=== PATIENT | female | born 1945 | race Caucasian/White ===

== ENCOUNTER → 2016-03-18 | Outpatient (CLI) | payer MEDICARE, OTHER | LOC: GMAL 10:18 | PROVIDERS: ATTEND Family Medicine | DX: D50.8 Other iron deficiency anemias (principal) ==

== ENCOUNTER → 2016-03-24 | Outpatient (CLI) | payer MEDICARE, OTHER | LOC: GMAL 17:45 | PROVIDERS: ATTEND Family Medicine | DX: D51.3 Other dietary vitamin B12 deficiency anemia (principal); R53.82 Chronic fatigue, unspecified ==

== ENCOUNTER → 2016-03-29 | Outpatient (CLI) | payer MEDICARE, OTHER | END | disposition home or self-care (01) | LOC: GMAL 17:59 | PROVIDERS: ATTEND Family Medicine | DX: N39.0 Urinary tract infection, site not specified (principal) ==

== ENCOUNTER → 2016-07-05 | Outpatient (CLI) | payer MEDICARE, OTHER | END | disposition home or self-care (01) | LOC: LAB.O 08:41 | PROVIDERS: ATTEND Internal Medicine Cardiovascular Disease | DX: E78.2 Mixed hyperlipidemia (principal); E11.9 Type 2 diabetes mellitus without complications; I10 Essential (primary) hypertension ==

== ENCOUNTER → 2016-09-02 | Outpatient (CLI) | payer MEDICARE, OTHER ==
--- NOTE | 2016-09-02 14:43 | RAD ---
EXAM DESCRIPTION: Hip,Left 2 Views CLINICAL HISTORY: HIP PAIN COMPARISON: None Available. TECHNIQUE: AP/frog leg lateral FINDINGS: There is no bone, joint, or soft tissue abnormality. No fracture or dislocation is seen. Previous internal fixation of the lower lumbar spine is noted. The joint spaces well-maintained. IMPRESSION: Normal study Electronically signed by: Jaswant Quijano MD 09/02/2016 2:42 PM CDT
--- NOTE | 2016-09-02 14:45 | RAD ---
EXAM DESCRIPTION: Pelvis CLINICAL HISTORY: HIP PAIN COMPARISON: None. TECHNIQUE: AP pelvis FINDINGS: Pedicle screw fusion is observed at the L4-5 level. There is evidence of an L4-L5 level laminectomy. The pelvis is intact. No fracturing is detected. The proximal femurs are unremarkable. IMPRESSION: Unremarkable pelvis and proximal femurs Electronically signed by: Lalo He MD 09/02/2016 2:43 PM CDT
== END | disposition home or self-care (01) ==
LOC: RAD 08:50
PROVIDERS: ATTEND Orthopaedic Surgery
DX: M25.552 Pain in left hip (principal); M25.551 Pain in right hip

== ENCOUNTER → 2016-09-29 | Outpatient (CLI) | payer MEDICARE, OTHER | END | disposition home or self-care (01) | LOC: GMAL 16:37 | PROVIDERS: ATTEND Family Medicine | DX: N39.0 Urinary tract infection, site not specified (principal) ==

== ENCOUNTER → 2016-10-12 | Outpatient (CLI) | payer MEDICARE, OTHER | END | disposition home or self-care (01) | LOC: GMAL 10:26 | PROVIDERS: ATTEND Family Medicine | DX: D50.8 Other iron deficiency anemias (principal); E55.9 Vitamin D deficiency, unspecified ==

== ENCOUNTER → 2016-11-08 | Outpatient (CLI) | payer MEDICARE, OTHER | END | disposition home or self-care (01) | LOC: GMAL 14:30 | PROVIDERS: ATTEND Family Medicine | DX: M25.50 Pain in unspecified joint (principal) ==

== ENCOUNTER → 2016-11-17 | Outpatient (CLI) | payer MEDICARE, OTHER | LOC: GMAL 14:48 | PROVIDERS: ATTEND Family Medicine | DX: R07.2 Precordial pain (principal) ==

== ENCOUNTER → 2016-12-06 | Outpatient (CLI) | payer MEDICARE, OTHER | END | disposition home or self-care (01) | LOC: GMAL 17:08 | PROVIDERS: ATTEND Family Medicine | DX: I50.9 Heart failure, unspecified (principal) ==

== ENCOUNTER → 2016-12-08 | Outpatient (CLI) | payer MEDICARE, OTHER ==
--- NOTE | 2016-12-09 15:19 | US ---
EXAM DESCRIPTION: Thyroid: Ultrasound. CLINICAL HISTORY: NONTOXIC SINGLE THYROID NODULE TECHNIQUE: Transcutaneous scannin-dimensional and Doppler modes. FINDINGS: Right lobe dimensions 5.3 x 2.4 x 2.3 cm. Heterogeneous echoes. Hypoechoic nodule in the upper lobe measuring 1 cm transverse and 1.7 x 0.8 cm longitudinal, nonvascular. Vascularity No microcalcifications. Contour right lobe smooth. Juxta-thyroid masses/fluid: none. Left lobe dimensions 3.6 x 1.7 x 1.2 cm. Heterogeneous echoes. Complex nodule in the lower lobe measuring 1.2 cm transverse and 1.7 x 1.0 cm in the sagittal plane, nonvascular. Second nodule hypoechoic and solid measuring 0.9 cm transverse and 12 x 8 mm in the sagittal plane. Projects posteriorly from the capsule. Nonvascular.. Normal vascularity in the remainder of the lobe. No microcalcifications. Contour left lobe smooth. Juxta-thyroid masses/fluid: none. Isthmus thickness 8.0 mm. Inhomogeneous echoes. Hypoechoic nodule in the midline and right of midline measuring 9.6 mm transverse and 13 x 8 mm in the sagittal plane. Nonvascular normal vascularity in the remainder of the lobe Contour elevated by the nodule. IMPRESSION: 1. Multiple nodules in the thyroid lobes bilaterally, some are solid and some are complex. These nodules do not meet imaging criteria for fine needle aspiration sampling according to RP best practice guidelines, adopted from ACR white paper and Menezes 3-tiered guidelines on incidental thyroid nodules. Please see below.* These recommendations do not apply to patients with increased risk for thyroid cancer or patients with symptomatic thyroid disease. Consider six month follow-up ultrasound imaging. 2. No discrete solid masses, cystic masses, or edema in the surrounding soft tissues. *Further evaluation by thyroid US recommended for: -Solitary incidental thyroid nodule (ITN) with high risk imaging features (locally invasive nodule or suspicious lymph nodes) -Solitary ITN of any size in pediatric patients <= 18 years of age -Solitary ITN >= 1 cm in axial plane in patients between 18 and 35 years of age -Solitary ITN >= 1.5 cm in axial plane in patients >= 35 years of age -Heterogeneous enlarged thyroid gland -ITN avid on FDG-PET or other nuclear medicine (MIBI and octreotide) scans. FNA biopsy is also recommended for PET avid nodules. 2.No f/u imaging is recommended for ITN's not meeting the above criteria. 3.For multiple thyroid nodules, the above recommendations for solitary ITN are to be applied to the largest nodule. 4.No US or f/u recommended for ITN's without high risk features in patients with limited life expectancy or significant co-morbidities, unless clinically warranted. 5.These recommendations do not apply to patients w/ increased risk for thyroid cancer or patients with symptomatic thyroid disease. Recommendations for f/u of Incidental Thyroid Nodules (ITN) found on CT, MR, NM and Extrathyroidal US are based upon the ACR white paper and Menezes 3-tiered system for managing ITN's: J [facility] 2015 Mar;12(2): 143-50 Electronically signed by: Ed Garcia MD 12/09/2016 3:17 PM CDT
== END ==
LOC: US 15:12
PROVIDERS: ATTEND Family Medicine
DX: E04.1 Nontoxic single thyroid nodule (principal)

== ENCOUNTER → 2017-04-04 | Outpatient (CLI) | payer MEDICARE, OTHER | LOC: GMAL 10:31 | PROVIDERS: ATTEND Family Medicine | DX: D51.3 Other dietary vitamin B12 deficiency anemia (principal); I10 Essential (primary) hypertension; E11.9 Type 2 diabetes mellitus without complications ==

== ENCOUNTER → 2017-04-11 | Outpatient (CLI) | payer MEDICARE, OTHER ==
--- NOTE | 2017-04-11 21:12 | CT ---
EXAM DESCRIPTION: Lumbar Spine: Computed Tomography. CLINICAL HISTORY: SPONDYLOSIS WITH RADICULOPATHY COMPARISON: CT thoracic spine on this visit. CT scan lumbar spine 10/30/2014. Prior reports are not available. TECHNIQUE: Spiral, axial 2.5 mm scans through the lumbar spine without contrast. Coronal and sagittal 2.0 mm reconstructions. Total Exam DLP: 813.66 mGy-cm. This exam was performed according to our departmental CT dose-optimization program which includes automated exposure control, adjustment of the mA and/or kV according to patient size and/or use of iterative reconstruction technique; to reduce radiation dose to as low as reasonably achievable (ALARA). FINDINGS: The findings on this study will be based upon observation that 6 lumbar type vertebra are present. 12 thoracic type vertebra and 12 rib pairs are present on the thoracic CT scan. The included sacrum is morphologically unremarkable, especially the S1 segment. Minimal posterior bulge L6-S1 disc space with minimal narrowing of the right foramen. Bilateral facet arthrosis, more on the right. Hardware is intact and customary position. No bony complications. Posterior decompression at L6. Fusion construct at L5 - L6 with bilateral posterior transpedicular screws and unilateral posterior connecting rods. Connecting link between the rods posterior to the L5 - 6 disc space. Mild to moderate narrowing of the right L5- L6 foramen. Interbody fusion device in the L5- L6 disc space with minimal air bubble. Mild narrowing of the left foramen. L4-5: Grade 1 retrolisthesis. Posterior disc bulge 4 mm or small protrusion, and minimal extrusion 3 mm below the disc space. Ossification in the posterior disc space. Bilateral facet arthrosis and widening. L4 and L5 pars interarticulares are bilaterally intact. Severe foraminal narrowing or stenosis bilaterally. L3-4: Anterior disc space loss and bulging and endplate ridging. Trace retrolisthesis. Tiny posterior disc bulge. Mild canal narrowing. Minimal facet arthrosis bilaterally. Bilateral mild foraminal narrowing. L2-3: Diffuse disc space loss more laterally and anteriorly as well as posteriorly. Posterior broad-based 3 mm meter disc bulge abutting the thecal sac. Bilateral facet arthrosis more right than left. Minimal flavum ligament hypertrophy. Mild Canal narrowing. Bilateral foramina are patent. L1-2: Disc space maintained with no significant bulging. Canal and foramina are patent. Minimal flavum ligament hypertrophy and bilateral facet arthrosis. T12-L1: Disc space maintained with no significant bulging. No canal or foraminal stenosis. Moderate facet arthrosis more left than right with ligament hypertrophy and partial calcification of the left flavum ligament abutting the thecal sac. Moderate to severe left foraminal narrowing mild right foraminal narrowing. IMPRESSION: 1. 6 lumbar type vertebra. Please see above discussion. Multiple levels of facet arthrosis in the lumbar spine. Stenosis of the foramina at some levels. 2. Fusion construct at L5-L6 with posterior transpedicular screws, connecting rods, and connecting link between the rods at the L5-L6 level. Also interbody fusion device. No hardware or bony complications. Moderate narrowing of the right L5-L6 foramen. 3. L4-5 grade 1 retrolisthesis with posterior broad-based small disc herniation and inferior extrusion. Bilateral foraminal stenosis. 4. L3-4 spondylosis more anterior than posterior and trace retrolisthesis. Mild canal narrowing. Foramina are patent. 5. L2-3 anterior spondylosis and minimal posterior disc bulge. Foramina and canal are patent. Electronically signed by: Ed Garcia MD 04/11/2017 9:11 PM [facility]
--- NOTE | 2017-04-11 21:33 | CT ---
EXAM DESCRIPTION: Thoracic Spine: Computed Tomography. CLINICAL HISTORY: OTHER SPONDYLOSIS WITH RADICULOPATHY COMPARISON: Previous CT scan thoracic spine 04/30/2013. CT scan of the lumbar spine without contrast on this visit. TECHNIQUE: Spiral, axial 5.0 mm scans through the thoracic spine without contrast. Axial 0.625 mm reconstructions with bone algorithm. Coronal and sagittal 2.0 mm reconstructions. Total Exam DLP: 1009.15 mGy-cm. This exam was performed according to our departmental CT dose-optimization program which includes automated exposure control, adjustment of the mA and/or kV according to patient size and/or use of iterative reconstruction technique; to reduce radiation dose to as low as reasonably achievable (ALARA). FINDINGS: Significant facet arthrosis and hypertrophy at T3-4 on the left with minimal mass effect on the left posterior cord and [id number] foraminal narrowing on the left and mild narrowing on the right. Canal nearly stenotic. Bilateral facet arthrosis and hypertrophy at T9-10 with minimal mass effect on the posterior lateral cord and bilateral foraminal narrowing. Bilateral foraminal narrowing T7-8 through T10-11 which may be due to shortened pedicles with mild canal narrowing as well posterior 3 mm disc bulge at T8-9 with calcification abutting the cord. Bilateral facet arthrosis at these levels. Loss of disc space at T7-8 with Schmorl's nodes in the endplates, and bilateral facet arthrosis. No disc bulging. Anterior endplate ridging T7-8 to T11-12. Normal bone density. No vertebral body compression at any level. Posterior elements are unremarkable. No scoliosis. Possible thickening of bronchi and pleura and the paraspinal long and questionable scarring or nodules left lung at the T7-8 level. IMPRESSION: 1. Bilateral facet arthropathy at T3-4 with narrowing of the foramina and canal and mass effect on the posterior cord. 2. Facet arthrosis, canal and foraminal narrowing T7-8 through T10-11. Spondylosis most severe at T7-8. Bilateral facet arthrosis more severe at T9-10. 3. No compression type vertebral body fractures; no acute bony abnormality of the posterior elements. 4. Question of bilateral chronic lung processes. Correlate with clinical history and consider PA and lateral chest radiographs. Electronically signed by: Ed Garcia MD 04/11/2017 9:32 PM SOFTWARE ANALYST Workstation: [employer]
== END ==
LOC: CT 11:00
PROVIDERS: ATTEND Neurological Surgery
DX: M47.26 Other spondylosis with radiculopathy, lumbar region (principal); M47.24 Other spondylosis with radiculopathy, thoracic region

== ENCOUNTER → 2017-04-15 | Outpatient (CLI) | payer MEDICARE, OTHER ==
--- NOTE | 2017-04-15 11:37 | RAD ---
Lumbar spine flexion/extension HISTORY: L3-4 spondylolisthesis COMPARISON: CT of lumbar spine from October 30, 2014 FINDINGS: Two lateral views of lumbar spine, during flexion and extension, demonstrate changes of prior posterior surgical fusion in L4 and L5 vertebral levels. Synthetic spacer also identified in the remaining disc spaces. Surgical hardware are grossly intact. There is subtle retrolisthesis of L3 on L4 with posterior endplate offset of 5.3 mm during flexion and 3.4 mm during extension. No significant additional spondylolisthesis in nonsurgical levels of lumbar spine. No interval compression injury. Varying degrees of degenerative disc height loss again noted slightly pronounced at L1-2 level. IMPRESSION: Spondylolisthesis at L3-4 level slightly variable in extent dependent on posture. Stable postsurgical changes as described. Electronically signed by: Osito Fofana MD 04/15/2017 11:[address] [facility]
== END ==
LOC: RAD 10:59
PROVIDERS: ATTEND Neurological Surgery
DX: M43.16 Spondylolisthesis, lumbar region (principal)

== ENCOUNTER → 2017-08-05 | Outpatient (CLI) | payer MEDICARE, OTHER | LOC: GMAL 11:42 | PROVIDERS: ATTEND Family Medicine | DX: R53.83 Other fatigue (principal) ==

== ENCOUNTER → 2017-10-27 | Outpatient (CLI) | payer MEDICARE, OTHER ==
--- NOTE | 2017-10-27 20:02 | CT ---
EXAM DESCRIPTION: Thoracic Spine CLINICAL HISTORY: BACK PAIN COMPARISON: None Available. TECHNIQUE: Thoracic CT is performed with thin-section axial imaging. MPRs are created and reviewed as well. FINDINGS: There is good alignment of the thoracic spine on sagittal reformatted images. Orthopedic hardware is seen in the lower C-spine. No spinal canal compromise or posterior discal abnormality of significance. Very small posterior calcified disc herniation is seen at T6-7 level. Slight anterior wedging of T5 and T6 is seen with a few Schmorl's nodes. No acute appearing compression fracture or bony destructive lesion. Posterior elements appear intact. No neural foraminal narrowing is evident. Coronal reformatted images show no scoliotic curvature. Mild spurring in the lower T-spine. Intact posterior medial ribs. Axial bone window images are negative for fracture. No posterior mediastinal mass or aneurysm. Axial images show minimal posterior annular bulge is without spinal stenosis. Small right paracentral chronic calcified disc herniation at T6-7 measures 3 mm in AP dimension without neural foraminal compromise or spinal stenosis. There is no vertebral congenital anomaly. There is relative preservation of thoracic intervertebral disc height. There is no canal or foraminal compromise. IMPRESSION: Negative for fracture. Small right paracentral calcified T6-7 disc herniation measures 3 mm without neural foraminal narrowing or spinal stenosis. This exam was performed according to our departmental dose-optimization program, which includes automated exposure control, adjustment of the mA and/or kV according to patient size and/or use of iterative reconstruction technique. Electronically signed by: Juan Murphy MD 10/27/2017 8:00 PM CDT
== END ==
LOC: CT 12:23
PROVIDERS: ATTEND Neurological Surgery
DX: M47.24 Other spondylosis with radiculopathy, thoracic region (principal); M51.24 Other intervertebral disc displacement, thoracic region

== ENCOUNTER → 2017-11-07 | Outpatient (CLI) | payer MEDICARE, OTHER | LOC: LAB.NP 08:00 → ER 10:56 → EDSTATUS 11:03 | PROVIDERS: ATTEND Family Medicine | DX: E55.9 Vitamin D deficiency, unspecified (principal) ==

== ENCOUNTER → 2018-08-02 | Outpatient (CLI) | payer MEDICARE, OTHER | LOC: LAB.O 12:14 | PROVIDERS: ATTEND Internal Medicine Gastroenterology | DX: R94.5 Abnormal results of liver function studies (principal) ==

== ENCOUNTER → 2018-08-31 | Outpatient (CLI) | payer MEDICARE, OTHER ==
--- NOTE | 2018-09-01 10:51 | MAM ---
EXAM DESCRIPTION: 3D Screening BILATERAL : Digital Mammography. CLINICAL HISTORY: 73 years Female ANNUAL SCREENING . No complaints or personal history of breast cancer. Sister with breast cancer at age 65. Childbirth. Postmenopausal. HRT 5 or more years ago. Lifetime risk of developing breast cancer (Tyrer-Cuzick model)(%): 7.3. COMPARISON: 2-D digital screening bilateral mammography 04/08/2015 TECHNIQUE: Bilateral CC and MLO projection full-field images, digital tomosynthesis mammographic technique. Bilateral digital 2-D full-field MLO images. CAD not available for tomosynthesis or 2-D images. FINDINGS: The breast parenchymal density pattern is: Scattered areas of fibroglandular density. No skin thickening or nipple retraction. Left axillary lymph node with pediatrician/medical doctor partially visualized over part of the left pectoral muscle on the MLO image. Bilateral solitary microcalcifications. Round oval nodules seen bilaterally throughout the breast parenchyma. No new focal, stellate mass or density, focal asymmetry , and no suspicious microcalcifications bilaterally. Stable mammograms compared to prior study. Taking into account, differences in mammographic technique. IMPRESSION: Benign exam. BIRAD CATEGORY: 2 BENIGN FINDINGS. RECOMMENDATIONS: FOLLOW UP: Routine digital bilateral mammographic screening, one year interval from August 2018. Written communication explaining the IMPRESSION and follow-up, will be mailed to the patient and referring health care provider. According to the [employer], yearly mammograms are recommended starting at age 40 and continuing as long as a woman is in good health. Any breast change noted on a breast self-exam should be reported promptly to the patient's healthcare provider. Breast MRI is recommended for women with an approximately 20-25% or greater lifetime risk of breast cancer, including women with a strong family history of breast or ovarian cancer and women who have been treated for Hodgkin's disease. A negative mammographic report should not delay tissue diagnosis in patients with significant clinical history or physical findings. Extremely dense breast tissue limits the sensitivity of digital mammography. Electronically signed by: Ed Garcia MD 09/01/2018 10:49 AM CDT
== END ==
LOC: MAMMO 11:08
PROVIDERS: ATTEND Family Medicine
DX: Z12.31 Encounter for screening mammogram for malignant neoplasm of breast (principal)

== ENCOUNTER → 2018-09-08 | Outpatient (CLI) | payer MEDICARE, OTHER ==
--- NOTE | 2018-09-08 15:32 | CT ---
EXAM DESCRIPTION: Lumbar Spine CLINICAL HISTORY: 73 years, Female, LOW BACK PAIN COMPARISON: None TECHNIQUE: CT of the lumbar spine was performed without IV contrast. This exam was performed according to our departmental dose-optimization program, which includes automated exposure control, adjustment of the mA and/or kV according to patient size and/or use of iterative reconstruction technique. FINDINGS: Six nonrib-bearing lumbar-type vertebral bodies. For the purposes of this exam, the designated L1 body is seen on axial image 35. With this in mind, postoperative changes at L3-4 and L4-5 including bilateral pedicle screws with posterior fixation rods, discectomy and interbody spacer devices. Laminectomy defects at L3, L4 and L5. The pedicle screws and interbody spacers are well positioned. No loosening or other hardware complication. No vertebral body fracture or subluxation. At T12-L1 and L1-2, there is no significant disc bulging or facet joint degeneration. At L2-3, concentric disc bulging with bilateral facet joint degeneration and ligamentum flavum thickening resulting in moderate central canal stenosis. Probable mild bilateral neural foraminal stenosis. The paraspinal and visualized retroperitoneal soft tissues are unremarkable. Rounded fluid-filled structures in the midline pelvis only partially visualized but probably represent fluid-filled small bowel loops rather than cystic pelvic mass. IMPRESSION: Transitional anatomy at the lumbar spine as detailed above with six nonrib-bearing lumbar-type vertebral bodies. Please see body of report for detailed discussion of nomenclature used in this exam. Postoperative changes at L3-4 and L4-5 as detailed above without apparent hardware or other surgical complication. Degenerative disc and facet joint disease at L2-3 resulting in central canal and neural foraminal stenosis. Probable fluid-filled bowel loops in the midline pelvis only partially visualized on this exam, less likely cystic pelvic mass. If clinically suspicious, pelvic ultrasound could be performed for further evaluation. Electronically signed by: Srinivasa Scott MD 09/08/2018 3:30 PM CDT
--- NOTE | 2018-09-08 15:40 | CT ---
EXAM DESCRIPTION: Cervical Spine CLINICAL HISTORY: RADICULOPATHY COMPARISON: None available. TECHNIQUE: CT of the cervical spine was performed without IV contrast. This exam was performed according to our departmental dose-optimization program, which includes automated exposure control, adjustment of the mA and/or kV according to patient size and/or use of iterative reconstruction technique. FINDINGS: Postoperative changes in the cervical spine related to previous ACDF extending C4-C7. No hardware other surgical complication. There is complete or near complete bony fusion of the C4-C7 vertebral bodies. No vertebral body fracture or subluxation. Alignment of the craniocervical junction is anatomic. At C2-3 and C3-4, there is no disc space narrowing, facet joint hypertrophy, central canal or neuroforaminal stenosis. At C4-5, left-sided uncovertebral joint hypertrophy results in mild left-sided neuroforaminal stenosis. At C5-6, there is bilateral uncovertebral joint hypertrophy resulting in minimal bilateral neural foraminal stenosis. At C6-7 and C7-T1, there is no uncovertebral joint hypertrophy, facet joint hypertrophy or stenosis. 3.0 cm low-density nodule right thyroid lobe, 1.3 cm low-density nodule left thyroid lobe. The lung apices are unremarkable. No adenopathy. IMPRESSION: Postoperative changes related to previous ACDF extending from C4 through C7 without hardware or other surgical complication. No significant degenerative disc or facet joint disease at the nonsurgical levels. Left-sided uncovertebral joint hypertrophy at C4-5 resulting in mild left-sided neural foraminal stenosis. Bilateral thyroid nodules including a 3 cm nodule in the right thyroid lobe. Ultrasound is recommended for further evaluation. Electronically signed by: Srinivasa Scott MD 09/08/2018 3:37 PM CDT
--- NOTE | 2018-09-08 15:47 | CT ---
EXAM DESCRIPTION: Thoracic Spine CLINICAL HISTORY: 73 years, Female, PAIN IN THORACIC SPINE COMPARISON: None TECHNIQUE: CT of the thoracic spine was performed without IV contrast. This exam was performed according to our departmental dose-optimization program, which includes automated exposure control, adjustment of the mA and/or kV according to patient size and/or use of iterative reconstruction technique. FINDINGS: 12 rib bearing thoracic type vertebral bodies. No vertebral body fracture or subluxation. No posterior rib abnormality. There are small anterior osteophytes at several levels in the midthoracic spine without disc space narrowing. Mild facet joint degeneration at several levels in the midthoracic spine without central canal or neuroforaminal stenosis. The spinous and transverse processes are intact. Cardiac pacemaker leads are partially visualized. Thyroid nodules, larger on the right side, better evaluated on today's CT cervical spine. Diffuse fatty infiltration of the liver is suspected. No airspace consolidation or pleural effusion. IMPRESSION: Mild degenerative changes at several levels in the midthoracic spine without central canal or foraminal stenosis. Bilateral thyroid nodules better evaluated on today's CT cervical spine. Electronically signed by: Srinivasa Scott MD 09/08/2018 3:45 PM CDT
== END ==
LOC: CT 13:30
PROVIDERS: ATTEND Family Medicine
DX: M54.12 Radiculopathy, cervical region (principal); M48.02 Spinal stenosis, cervical region; M47.894 Other spondylosis, thoracic region; M51.36 Other intervertebral disc degeneration, lumbar region; M51.86 Other intervertebral disc disorders, lumbar region; E04.1 Nontoxic single thyroid nodule; Z98.890 Other specified postprocedural states

== ENCOUNTER → 2018-09-18 | Outpatient (CLI) | payer MEDICARE, OTHER ==
--- NOTE | 2018-09-26 16:07 | US ---
US THYROID CLINICAL STATEMENT: Thyroid nodule.. COMPARISON: None TECHNIQUE: Transcutaneous scanning, grayscale and Doppler modes. FINDINGS: Size right thyroid lobe: 5.6 x 2.8 x 2.6 cm Size left thyroid lobe: 4.8 x 1.4 x 1.2 cm Size isthmus: 1.0 cm Estimated total number of nodules greater than or equal to 1 cm: 3 Nodule 1: Size: 4.1 x 2.9 x 2.6 cm Location: Right Mid Composition: solid or almost completely solid: 2 points. Minimal vascularity centrally. Echogenicity: hypoechoic: 2 points Shape: wider than tall: 0 points Margins: ill-defined: 0 points Echogenic foci: None. ACR Total Points: 4. Nodule 2: Size: 1.7 x 1.1 x 1.1 cm Location: Left Lower Composition: solid or almost completely solid: 2 points Echogenicity: hypoechoic: 2 points Shape: wider than tall: 0 points Margins: smooth: 0 points. Minimal vascularity on the margin. Echogenic foci: none: 0 points ACR Total Points: 4; ACR TI-RADS risk category: TR4 - moderately suspicious nodule. Nodule 3: Size: 1.1 x 1.0 x 0.7 cm Location: Isthmus Mid Composition: solid or almost completely solid: 2 points Echogenicity: very hypoechoic: 3 points Shape: wider than tall: 0 points Margins: smooth: 0 points Echogenic foci: none: 0 points ACR Total Points: 5; ACR TI-RADS risk category: TR4 - moderately suspicious nodule. Nodule 4: Size: 0.6 x 0.4 x 0.3 cm Location: Right Upper Composition: cystic or completely cystic: 0 points Echogenicity: anechoic: 0 points Shape: wider than tall: 0 points Margins: smooth: 0 points Echogenic foci: none: 0 points ACR Total Points: 0; ACR TI-RADS risk category: TR1 - benign nodule No distinct simple cysts in the lingula or left lobe or surrounding soft tissues. No dominant soft tissue masses or calcifications in the surrounding soft tissues. IMPRESSION: 1. Nodule 1: ACR TI-RADS 2017 Category TR4. Enlarged from 3.6 cm on the prior study. Recommend: Ultrasound-guided fine needle aspiration. Recommendations based upon [facility] Best Practice recommendations and ACR TI-RADS 2017 guidelines. Please see below*. 2. Nodule 2: ACR TI-RADS 2017 Category TR 4, slightly enlarged from the prior study.. Recommend: Ultrasound-guided fine needle aspiration 3. Nodule 3: ACR TI-RADS 2017 Category TR4. Stable since the prior study. Recommend: Follow-up ultrasound in 1 year. 4. Nodule 4: ACR TI-RADS 2017 Category TR1. Recommend: No further follow-up. Soft tissue around the thyroid gland is unremarkable. *ACR TI-RADS 2017 Recommendations: TR1: No FNA or follow up TR2: No FNA or follow up TR3: FNA if >/= 2.5 cm, follow up if 1.5 - 2.4 cm in 1, 3, and 5 years TR4: FNA if >/= 1.5 cm, follow up if 1.0 - 1.4 cm in 1, 2, 3, and 5 years TR5: FNA if >/= 1.0 cm, follow up if 0.5 - 0.9 cm every year for 5 years ACR TI-RADS recommends that no more than two nodules with the highest ACR TI-RADS total point should be biopsied and no more than four nodules should be followed. These recommendations do not apply to patients with increased risk for thyroid cancer or patients with symptomatic thyroid disease. Electronically signed by: Ed Garcia MD 09/18/2018 12:02 PM CDT
== END ==
LOC: US 09:00
PROVIDERS: ATTEND Family Medicine
DX: E04.1 Nontoxic single thyroid nodule (principal)

== ENCOUNTER → 2018-10-25 | Outpatient (CLI) | payer MEDICARE, OTHER | LOC: LAB.O 10:51 | PROVIDERS: ATTEND Family Medicine | DX: M25.50 Pain in unspecified joint (principal); M79.7 Fibromyalgia ==

== ENCOUNTER 2018-12-27 05:14 | Day surgery (SDC) | payer MEDICARE, OTHER ==
[2018-12-27] MEDS ORDERED: LACTATED RINGERS 1,000 ML ONE (06:02)
[2018-12-27] MEDS ORDERED: PROPOFOL 200 MG/20 ML VIAL IV ONE (10:00)
[2018-12-27] MEDS ORDERED: LIDOCAINE 1% 10 ML VIAL INJ ONE (10:00)
--- NOTE | 2018-12-27 13:10 | OP ---
PREOPERATIVE DIAGNOSIS: PREOPERATIVE DIAGNOSIS: 1. History of adenomatous polyps. Her last colonoscopy was 2013. POSTOPERATIVE DIAGNOSIS: 1. Two descending colon polyps. 2. Sigmoid diverticulosis. PROCEDURE: 1. Colonoscopy plus polypectomy. SURGEON: Avtar Scott MD. COMPLICATIONS: None apparent. BLOOD LOSS: None. MEDICATIONS: Monitored anesthesia care. DESCRIPTION OF PROCEDURE: Informed consent was obtained prior to sedation. The preprocedure cardiopulmonary assessment was satisfactory. The patient was placed in the left lateral decubitus position and was sedated. A digital rectal exam was unremarkable. The tip of the Olympus colonoscope was inserted in the rectum and guided over to the cecum. The cecum was identified by locating the ileocecal valve and appendiceal orifice. I was unable to perform retroflexed view in the right colon due to challenge with her anatomy. Nevertheless, I was able to get a good exam of her cecum, ascending colon, hepatic flexure, transverse colon, splenic flexure, descending colon and sigmoid colon. Direct and retroflexed views of the rectum were obtained. The patient had two descending colon polyps that were sessile and about 3 mm in size. Both were removed with a cold snare. However, only one was recovered. The sigmoid had some scattered diverticula. Otherwise, her colonoscopy was normal. RECOMMENDATIONS: 1. Followup polyp pathology. 2. Followup colonoscopy in 5 years because of the history of polyps. 3. I feel like we need to pursue a liver biopsy, but that has not been done yet. She had to cancel because of some family issues. We still plan on getting that done in the future. #[id number] cc: Lalo Estevez MD MTDD
[2018-12-27 13:51] VITALS: BP 169/81; TEMP 98.2; O2SAT 96
== END 2018-12-27 12:40 | disposition home or self-care (01) ==
LOC: AMB 05:14
PROVIDERS: ATTEND Internal Medicine Gastroenterology
DX: Z12.11 Encounter for screening for malignant neoplasm of colon (principal); D12.4 Benign neoplasm of descending colon; K57.30 Diverticulosis of large intestine without perforation or abscess without bleeding; E11.9 Type 2 diabetes mellitus without complications; J45.909 Unspecified asthma, uncomplicated; E66.9 Obesity, unspecified; K76.0 Fatty (change of) liver, not elsewhere classified; Z88.0 Allergy status to penicillin; Z88.2 Allergy status to sulfonamides; Z88.8 Allergy status to other drugs, medicaments and biological substances; Z95.0 Presence of cardiac pacemaker; Z90.710 Acquired absence of both cervix and uterus; Z68.32 Body mass index [BMI] 32.0-32.9, adult; Z79.899 Other long term (current) drug therapy
CPT/HCPCS: 00812; 36416; 45385; 82948; 88305; J3490; J7120

== ENCOUNTER → 2019-01-17 | Outpatient (CLI) | payer MEDICARE, OTHER | LOC: LAB.O 10:12 | PROVIDERS: ATTEND Otolaryngology Otolaryngology/Facial Plastic Surgery | DX: E04.1 Nontoxic single thyroid nodule (principal) ==

== ENCOUNTER → 2019-08-21 | Outpatient (CLI) | payer MEDICARE, OTHER | LOC: GMAL 10:31 | PROVIDERS: ATTEND Family Medicine | DX: D51.3 Other dietary vitamin B12 deficiency anemia (principal); R53.83 Other fatigue; E55.9 Vitamin D deficiency, unspecified; I10 Essential (primary) hypertension; E11.9 Type 2 diabetes mellitus without complications; E78.49 Other hyperlipidemia ==

== ENCOUNTER → 2019-10-01 | Outpatient (CLI) | payer MEDICARE, OTHER | LOC: GMAL 12:08 | PROVIDERS: ATTEND Family Medicine | DX: D50.8 Other iron deficiency anemias (principal) ==

== ENCOUNTER 2019-11-13 10:50 | Emergency (ER) | payer MEDICARE, OTHER ==
[2019-11-13] MEDS ORDERED: ASPIRIN TABLET 325 MG TAB PO ONE (11:08)
--- NOTE | 2019-11-13 11:31 | RAD ---
EXAM DESCRIPTION: Chest,1 View CLINICAL HISTORY: 74 years Female, palpitations COMPARISON: None. TECHNIQUE: AP portable chest. FINDINGS: Single view of the chest demonstrates permanent sequential pacer with right atrial and right ventricular leads in satisfactory position. Mild cardiomegaly is present with normal vascularity. The lung trotter are clear. No infiltrates or consolidation or atelectasis or pleural effusions or peripheral mass is noted. The hilar and mediastinal structures are normal. Previous anterior plating of the lower cervical spine noted. IMPRESSION: Mild cardiomegaly and indwelling permanent pacer, otherwise negative chest one view. Electronically signed by: Jaswant Quijano MD 11/13/2019 11:29 AM CDT
[2019-11-13] MEDS ORDERED: traMADol HCL 50 MG TAB PO ONE (13:32)
[2019-11-13 14:40] VITALS: O2SAT 96
[2019-11-13] MEDS ORDERED: SUCRALFATE 1 GM/10 ML 1 GM UD PO ONE (15:00)
[2019-11-13] MEDS ORDERED: OMEPRAZOLE CAP 20 MG CAP PO ONE (15:00)
--- NOTE | 2019-11-13 15:03 | ED.PDOC ---
History of Present Illness - General Chief Complaint: Headache Stated Complaint: M[place],lightheadedness,heart racing Time Seen by Provider: 11/13/19 10:57 Source: patient Exam Limitations: no limitations - History of Present Illness Initial Comments: The patient is a 74-year-old female presented emergency room secondary to a mild sensation of palpitations and mild chest pressure that is been going on for the last 48 hours. The patient did have a couple of episodes of palpitations here while she was on telemetry but there was no evidence of any arrhythmia. She is alert and oriented. Her last episode of chest discomfort was about an hour ago. No syncope or near syncope. No vision taste or smell changes. She does have a pacemaker. She has been on beta-blockers in the past. She has moderately hypertensive here. She has been feeling a little bit fatigued lately. Her reflux issues have been worsening lately as well. She has been feeling more of the acid in the back of her mouth. Timing/Duration: other Severity: mild Improving Factors: nothing Worsening Factors: nothing Associated Symptoms: malaise Allergies/Adverse Reactions: Allergies Cephalexin [From Keflex] Allergy (Verified 12/27/18 11:01) Penicillins Allergy (Verified 12/27/18 11:01) Sulfa Antibiotics Allergy (Verified 12/27/18 11:01) Home Medications: Ambulatory Orders Albuterol Inhaler [Proventil Hfa Inhaler] 1 puff INH PRN PRN 12/04/13 Furosemide [Lasix] 80 mg PO DAILY 12/04/13 Lisinopril 20 mg PO DAILY 12/04/13 Montelukast [Singulair] 10 mg PO BEDTIME 12/04/13 Potassium Chloride [K-Tab] 20 meq PO BID 12/04/13 Pregabalin [Lyrica] 50 mg PO BEDTIME 12/04/13 Cyanocobalamin [Vitamin B12] 500 mcg PO DAILY 12/22/18 Metformin HCl [Metformin Hydrochloride E] 250 mg PO .[id number] 12/22/18 Vitamin E 800 unit PO DAILY 12/22/18 Atorvastatin Calcium [Lipitor] 20 mg PO DAILY 11/13/19 Citalopram Hydrobromide [Citalopram] 20 mg PO DAILY 11/13/19 Lisinopril 10 mg PO BEDTIME 11/13/19 Omeprazole 40 mg PO DAILY #90 cap 11/13/19 Semaglutide [Ozempic] 1 mg SC WKLY 11/13/19 Sucralfate Tab [Carafate Tab] 1 gm PO QID #120 tab 11/13/19 Review of Systems - Review of Systems Constitutional: States: malaise EENTM: States: no symptoms reported Respiratory: States: no symptoms reported Cardiology: States: chest pain, palpitations Gastrointestinal/Abdominal: States: no symptoms reported Genitourinary: States: no symptoms reported Musculoskeletal: States: no symptoms reported Skin: States: no symptoms reported Neurological: States: anxiety, headache - Mild Endocrine: States: no symptoms reported All other Systems: No Change from Baseline Past Medical History (General) - Patient Medical History Hx Stroke: No Hx Cardiac Disorders: Yes Hx Congestive Heart Failure: No Hx Hypertension: Yes Hx Diabetes: Yes Hx MRSA: No Surgical History: pacemaker, Hysterectomy - Vaccination History Hx Influenza Vaccination: No Hx Pneumococcal Vaccination: Yes - Social History Hx Tobacco Use: No Family Medical History - Family History Mother Family History: Unknown Living Status: Unknown Physical Exam - Physical Exam General Appearance: Alert, Anxious, No apparent distress Eye Exam: bilateral normal Ears, Nose, Throat: hearing grossly normal, normal pharynx Neck: non-tender, supple Respiratory: lungs clear, normal breath sounds, no respiratory distress, no accessory muscle use Cardiovascular/Chest: normal peripheral pulses - It is a paced sinus rhythm, regular rate, rhythm, no edema Peripheral Pulses: radial,right: 2+, radial,left: 2+, dorsalis pedis,right: 2+, dorsalis pedis,left: 2+ Gastrointestinal/Abdominal: non tender, soft Rectal Exam: deferred Back Exam: no CVA tenderness, no vertebral tenderness Extremity: normal range of motion, non-tender, normal inspection, no pedal edema, normal capillary refill 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, alert, normal mood/affect - Moderately anxious, oriented x 3 Skin Exam: normal color Comments: Vital Signs - 24 hr 11/13/19 11/13/19 11/13/19 11:04 11:53 11:54 Temperature 96.8 F L Pulse Rate [ 60 60 60 Left Brachial] Respiratory 20 Rate Blood Pressure 172/91 153/86 169/98 [Left Arm] O2 Sat by Pulse 96 Oximetry 11/13/19 11/13/19 11/13/19 12:00 12:51 13:26 Temperature Pulse Rate [ 60 63 Left Brachial] Respiratory 16 20 20 Rate Blood Pressure 167/87 141/79 [Left Arm] O2 Sat by Pulse 97 97 Oximetry 11/13/19 14:38 Temperature Pulse Rate [ 60 Left Brachial] Respiratory 18 Rate Blood Pressure 163/80 [Left Arm] O2 Sat by Pulse 96 Oximetry Progress - Progress Progress: 11/13/19 15:05 The patient is a 74-year-old female presenting secondary to chest discomfort and palpitations. Palpitations do not seem to be corresponding to telemetry monitoring. She has had an increase in her reflux symptoms lately and this is more likely the source. The patient is going to be placed on omeprazole for the next few months along with Carafate for the next few weeks. She actually has follow-up with Dr. Scott tomorrow for further input. 2 sets of cardiac enzymes are negative. The patient is feeling fine at this point. Keep routine follow-up with primary care doctor otherwise. ER warnings are given. ady galvan [phone] - Results/Orders Results/Orders: Chest x-ray shows no acute pathology. 11/13/19 11:15 EKG STAT shows a paced atrial rhythm. [address] segment or T wave changes definitive for acute ischemia when compared to previous EKGs. Borderline QT interval. Poor R wave progression which is not new. Respiratory panel is negative. Laboratory Results - last 24 hr 11/13/19 11/13/19 11/13/19 11:15 11:15 11:15 WBC 7.0 RBC 3.87 L Hgb 12.0 Hct 33.4 L MCV 86.3 MCH 30.9 MCHC 35.8 RDW 13.5 Plt Count 270 MPV 7.9 Absolute Neuts (auto) 4.20 Absolute Lymphs (auto) 2.10 Absolute Monos (auto) 0.50 Absolute Eos (auto) 0.10 Absolute Basos (auto) 0.10 Neutrophils % 60.2 Lymphocytes % 29.7 Monocytes % 7.7 Eosinophils % 1.3 Basophils % 1.1 PT 9.9 INR 1.00 PTT (SP) 22.1 Sodium 137 Potassium 4.0 Chloride 103 Carbon Dioxide 25 Anion Gap 13.0 BUN 23 H Creatinine 1.21 BUN/Creatinine Ratio 19.0 Random Glucose 93 Serum Osmolality 277.2 Calcium 9.2 Magnesium 2.0 Total Bilirubin 0.8 AST 15 ALT 15 Alkaline Phosphatase 73 Creatine Kinase 33 CK-MB (CK-2) 0.3 CK-MB (CK-2) % Not Reportable Troponin I 0.01 B-Natriuretic Peptide 37.4 Serum Total Protein 6.8 Albumin 4.0 Globulin 2.8 Albumin/Globulin Ratio 1.4 TSH 3.05 Urine Color Urine Appearance Urine pH Ur Specific [place] Urine Protein Urine Glucose (UA) Urine Ketones Urine Blood Urine Nitrite Urine Bilirubin Urine Urobilinogen Ur Leukocyte Esterase Urine RBC Urine WBC Ur Epithelial Cells Urine Bacteria 11/13/19 11/13/19 12:10 14:02 WBC RBC Hgb Hct MCV MCH MCHC RDW Plt Count MPV Absolute Neuts (auto) Absolute Lymphs (auto) Absolute Monos (auto) Absolute Eos (auto) Absolute Basos (auto) Neutrophils % Lymphocytes % Monocytes % Eosinophils % Basophils % PT INR PTT (SP) Sodium Potassium Chloride Carbon Dioxide Anion Gap BUN Creatinine BUN/Creatinine Ratio Random Glucose Serum Osmolality Calcium Magnesium Total Bilirubin AST ALT Alkaline Phosphatase Creatine Kinase 33 CK-MB (CK-2) 0.3 CK-MB (CK-2) % Not Reportable Troponin I 0.01 B-Natriuretic Peptide Serum Total Protein Albumin Globulin Albumin/Globulin Ratio TSH Urine Color Yellow Urine Appearance Clear Urine pH 7.0 Ur Specific [place] 1.015 Urine Protein Negative Urine Glucose (UA) Negative Urine Ketones Negative Urine Blood Negative Urine Nitrite Negative Urine Bilirubin Negative Urine Urobilinogen 0.2 Ur Leukocyte Esterase Negative Urine RBC 1-3 Urine WBC 0-1 Ur Epithelial Cells 0-1 Urine Bacteria 0 Departure - Departure Clinical Impression: Reflux esophagitis Disposition: Discharge to Home or Self Care Condition: Fair Departure Forms: ED Discharge - Pt. Copy, Patient Portal Self Enrollment Instructions: DI for Headache, Acid Reflux and GERD in Adults (DC) Diet: bland diet Activity: increase activity as tolerated Referrals: Lalo Estevez III, MD [Primary Care Provider] - 1-2 Weeks Prescriptions: Sucralfate Tab [Carafate Tab] 1 gm PO QID #120 tab Omeprazole 40 mg PO DAILY #90 cap Home Medications: Ambulatory Orders Albuterol Inhaler [Proventil Hfa Inhaler] 1 puff INH PRN PRN 12/04/13 Furosemide [Lasix] 80 mg PO DAILY 10/14/14 Lisinopril 20 mg PO DAILY 12/04/13 Montelukast [Singulair] 10 mg PO BEDTIME 12/04/13 Potassium Chloride [K-Tab] 20 meq PO BID 12/04/13 Pregabalin [Lyrica] 50 mg PO BEDTIME 12/04/13 Cyanocobalamin [Vitamin B12] 500 mcg PO DAILY 12/22/18 Metformin HCl [Metformin Hydrochloride E] 250 mg PO .[id number] 12/22/18 Vitamin E 800 unit PO DAILY 12/22/18 Atorvastatin Calcium [Lipitor] 20 mg PO DAILY 11/13/19 Citalopram Hydrobromide [Citalopram] 20 mg PO DAILY 11/13/19 Lisinopril 10 mg PO BEDTIME 11/13/19 Omeprazole 40 mg PO DAILY #90 cap 11/13/19 Semaglutide [Ozempic] 1 mg SC WKLY 11/13/19 Sucralfate Tab [Carafate Tab] 1 gm PO QID #120 tab 11/13/19 Additional Instructions: The patient is a 74-year-old female presenting secondary to chest discomfort and palpitations. Palpitations do not seem to be corresponding to telemetry monitoring. She has had an increase in her reflux symptoms lately and this is more likely the source. The patient is going to be placed on omeprazole for the next few months along with Carafate for the next few weeks. She actually has follow-up with Dr. Scott tomorrow for further input. 2 sets of cardiac enzymes are negative. The patient is feeling fine at this point. Keep routine follow-up with primary care doctor otherwise. ER warnings are given.
[2019-11-13 15:36] VITALS: BP 153/82; TEMP 98.2
== END 2019-11-13 15:15 | disposition home or self-care (01) ==
LOC: ER 10:50
DX: K21.9 Gastro-esophageal reflux disease without esophagitis (principal); R07.89 Other chest pain; R00.2 Palpitations; R51 Headache; I51.9 Heart disease, unspecified; I10 Essential (primary) hypertension; E11.9 Type 2 diabetes mellitus without complications; Z20.828 Contact with and (suspected) exposure to other viral communicable diseases; Z95.0 Presence of cardiac pacemaker; Z79.899 Other long term (current) drug therapy; Z79.84 Long term (current) use of oral hypoglycemic drugs; Z88.1 Allergy status to other antibiotic agents; Z88.0 Allergy status to penicillin; Z88.2 Allergy status to sulfonamides

== ENCOUNTER → 2019-11-14 | Outpatient (CLI) | payer MEDICARE, OTHER | LOC: LAB.O 12:11 | PROVIDERS: ATTEND Internal Medicine Gastroenterology | DX: D64.9 Anemia, unspecified (principal); Z79.899 Other long term (current) drug therapy ==

== ENCOUNTER → 2019-11-26 | Outpatient (CLI) | payer MEDICARE, OTHER | LOC: GMAL 11:12 | PROVIDERS: ATTEND Family Medicine | DX: D50.8 Other iron deficiency anemias (principal); I10 Essential (primary) hypertension; E78.49 Other hyperlipidemia; E11.42 Type 2 diabetes mellitus with diabetic polyneuropathy; Z79.899 Other long term (current) drug therapy ==